=== PATIENT | female | born 1950 | race Caucasian/White ===

== ENCOUNTER 2016-02-26 15:05 | Emergency (ER) | payer OTHER, MEDICARE ==
[2016-02-26] MEDS ORDERED: NORMAL SALINE 10 ML SYRINGE FLUSH IVP PRN (15:21)
[2016-02-26] MEDS ORDERED: ASPIRIN 81 MG (BABY) CHEWABLE TABLET PO ONE (15:21)
--- NOTE | 2016-02-26 15:26 | EKG ---
[address] [place] [address] Measurements Intervals [place] Rate: 57 P: 34 ME: 209 QRS: 24 QRSD: 93 T: 30 QT: 435 QTc: 428 Interpretive Statements SINUS BRADYCARDIA WITH FIRST DEGREE AV BLOCK POSSIBLE ANTERIOR MYOCARDIAL INFARCTION PROBABLY OLD NONSPECIFC ST CHANGES Compared to ECG 05/04/2015 13:03:50 Myocardial infarct finding now present Sinus arrhythmia no longer present Electronically Signed On 02-26-16 20:01:05 [facility] by Alton Sosa [email or web address]
[2016-02-26] MEDS ORDERED: NITROGLYCERIN 0.4 MG SL TAB (BOTTLE OF 3) SL ONE (15:29)
[2016-02-26 15:39] LABS: BASOPHILS # (AUTO) 0.01 10*3/UL; BASOPHILS % (AUTO) 0.2 % (0-1); EOSINOPHILS % (AUTO) 0.3 % (0-8); HEMATOCRIT 39.5 % (37.0-47.0); HEMOGLOBIN 13.3 g/dL (12.0-16.0); IMM GRAN % (AUTO) 0.3 % (0-5); IMM GRAN# (AUTO) 0.02 10*3/UL; LYMPHOCYTES # (AUTO) 2.14 10*3/uL; MEAN CORPUSCULAR HEMOGLOBIN 30.4 PG (27-31); MEAN CORPUSCULAR HGB CONC 33.7 g/dL (33-37); MONOCYTES # (AUTO) 0.41 10*3/UL (0.3-0.8); MONOCYTES % (AUTO) 6.7 % (5-15); NEUTROPHILS # (AUTO) 3.52 10*3/UL; NEUTROPHILS % (AUTO) 57.5 % (50-80); RDW COEFFICIENT OF VARIATION 13.5 % (11.5-14.5); RED BLOOD COUNT 4.38 10^6/uL (4.20-5.40); WHITE BLOOD COUNT 6.12 10^3/uL (4.8-10.8)
[2016-02-26 15:49] LABS: PLATELET MORPHOLOGY COMMENT NORMAL MORPHOLOGY (NORM)
[2016-02-26 15:50] LABS: CALCIUM 9.2 mg/dL (8.7-10.7); MAGNESIUM 1.9 mg/dL (1.6-2.4); TOTAL PROTEIN 7.1 g/dL (6.1-8.0)
--- NOTE | 2016-02-26 15:50 | DI ---
HISTORY: Chest pain with indigestion. COMPARISON: None available. FINDINGS: Borderline cardiomegaly is noted with slight accentuation of the pulmonary vasculature in both lung bases. The lung castellanos are otherwise essentially clear. IMPRESSION: 1. Borderline cardiomegaly is noted with slight accentuation of the pulmonary vasculature in both vero g bases.
[2016-02-26 15:57] VITALS: RESP 16; TEMP 97.8
[2016-02-26 16:04] LABS: PROTHROMBIN TIME 10.2 secs (9.7-11.4)
[2016-02-26 16:05] LABS: CREATINE KINASE MB 1.23 NG/DL (0.00-5.00); TROPONIN I 0.012 ng/mL (< 0.040)
[2016-02-26] MEDS ORDERED: Sodium Chloride 0.9% 1,000 ML PRIMARY IV ONE (16:10)
[2016-02-26] MEDS ORDERED: Belladon/PHENobarbital Elixir 10 ML, Lidocaine Viscous Liquid 2% 15 ML, Mag Hyd/Al Hyd/... PO ONE ×3 (16:15)
[2016-02-26] MEDS ORDERED: Pantoprazole Inj 40 MG in Normal Saline Flush 10 ML IVP ONE (16:15)
[2016-02-26] MEDS ORDERED: LORazepam 2 MG/1 ML VIAL IVP ONE (16:58)
--- NOTE | 2016-02-26 21:25 | PDOC ---
Chest Pain HPI - General Chief Complaint: Chest Pain Stated Complaint: chest pain Date Seen by Provider: 02/26/16 Time Seen by Provider: 15:10 Source: Patient Exam Limitations: POSITIVE: No limitations Treatment Prior to Arrival: REPORTS: Aspirin (81 mg 1 this morning at home), Other (Patient has been taking Tums and an acid medicines at home the past couple of days.) Nurse's Notes Reviewed & Considered: Yes - History of Present Illness Initial Comments: The patient is a 66-year-old female who presents to the emergency department with chest pain. She states that for the past 2 or 3 days she's been having pain in her left lower chest with some radiation up into her neck. She states that she thought this pain was indigestion and she has been taking Tums as well as her regular Zantac and one of her 's Prilosec without any relief. She denies any associated shortness of breath, nausea or vomiting, fevers or chills, cough, palpitations or any other associated complaints. She does have a known history of acid reflux and normally takes Zantac twice a day. She has had one previous heart attack postoperatively after a neck surgery. She has had 2 cardiac catheterizations however after that one in 2008 and one in 2011 which did not show any evidence of blockage or coronary artery disease. She denies any pain or swelling in her extremities. She does have a prior history of stroke and currently takes Plavix. She did take one baby aspirin earlier today. Her pain is been constant since yesterday afternoon. She did take a pain pill at home and got some relief and was able to get some sleep last night. She does report that she has not been sleeping well in general for the past several weeks. She states that she normally takes Xanax however this has not been working recently. - Patient Home Medications Home Medications: Home Medications Aspirin [Adult Low Dose Aspirin] 81 mg PO DAILY 08/23/12 Alprazolam [Xanax] 1 tab PO BEDTIME tab 03/28/15 Levothyroxine Sodium [Synthroid] 1 tab PO DAILY tab 03/28/15 Nebivolol HCl [Bystolic] 5 mg PO DAILY tab 03/28/15 [place]-3 Fatty Acids/Fish Oil [Fish Oil 1,200 Mg Softgel] 1 each PO DAILY cap Psyllium Husk [Metamucil] 0.52 gm PO DAILY cap 09/25/15 Clopidogrel Bisulfate [Plavix] 1 tab PO DAILY #90 tab 11/06/15 Ranitidine HCl 150 mg PO BID #180 tab 11/06/15 Amlodipine Besylate 1 tab PO DAILY #90 tab 11/20/15 Ezetimibe [Zetia] 10 mg PO DAILY #90 tab 11/20/15 Pantoprazole Sodium [Protonix] 40 mg PO BID #30 tablet 02/26/16 - Patient Allergies Allergies/Adverse Reactions: Allergies Allergy/AdvReac Type Severity Reaction Status Date / Time Tetanus Vaccines and Toxoid Allergy Severe HOSPITALIZED Verified 02/26/16 16:02 X 6 WKS Sulfa (Sulfonamide Allergy Intermediate RASH/ Verified 02/26/16 16:02 Antibiotics) SYNCOPAL EPISODE Past Medical History - heen HEENT History: Denies History Cardiovascular History: Previous [facility] Additional Cardiovasular History: PATIENT STATES SHE HAD A VA 8 YEARS AGO (1997 OR ) AND HAD A "NORMAL CATHETERIZATION" FOLLOWING THIS Respiratory History: Denies History Gastrointestinal History: Denies History Genitourinary History: Denies History Endocrine History: Hypothyroidism Musculoskeletal History: Back Pain Prosthesis or Implant: No Additional Musculoskeletal History: NECK SURGERY Neurological History: CVA, Frequent Headaches Blood Disorders: Denies History Psychiatric History: Anixety Disorders Female Reproductive History: Denies History Cancer History: Denies History In Past Year Been Physically Harmed or Verbally Threatened: No History of MDRO: No Tobacco Use: Never Smoker Alcohol Use: Rarely Substance Use Type: None Previous Surgical History: Yes Type / Date of Surgery: NECK SURGERY, HYSTERECTOMY. SHOULDER Anesthesia Reactions: No Significant Family History: No pertinent family hx Past Medical History Reviewed: Reviewed - No Changes ROS - Limitations ROS Limitations: No Limitations Constitution: DENIES: Chills, Fever Cardiovascular: REPORTS: Chest Pain. DENIES: Heart Racing, Heart Palpitations, Blood Pressure Problem, Edema Respiratory: DENIES: Hurts To Breathe, Shortness Of Breath Neurological: REPORTS: Denies Neuro Symptoms Gastrointestinal: DENIES: Nausea, Vomitting Endocrine: REPORTS: Denies Symptoms Musculoskeletal: REPORTS: Denies MS Symptoms Genitourinary: REPORTS: Denies Symptoms Eyes: REPORTS: Denies Symptoms ENT: REPORTS: Denies Symptoms Skin: DENIES: Rash Chest Pain PE - General Appearance General Appearance: REPORTS: Alert, Cooperative, No Acute Distress - HEENT HEENT: POSITIVE: Head Inspection Nml, Eyes Inspection Nml, Ears Inspection Nml, Nose Inspection Nml, PERRL, EOMI - Neck Neck: REPORTS: Normal Inspection. DENIES: JVD Present - Respiratory Respiratory: REPORTS: No Respiratory Distress, Breath Sounds Normal - Cardiovascular Cardiovascular: REPORTS: Regular Rate and Rhythm, Heart Sounds Normal Peripheral Pulses: Dorsalis-pedis (R): 2+, Dorsalis-pedis (L): 2+ - Abdomen Abdomen: Soft: (All Quadrants), Denies Tenderness: (All Quadrants), No Distention: (All Quadrants) - Skin Skin: REPORTS: Intact, No Rash - Extremities Extremity: Normal ROM: (All Extremities), Normal Inspection: (All Extremities) - Neurological / Psychological Neurological: POSITIVE: Oriented X3, Motor Normal, Sensation Normal Chest Pain Progress - Results Reviewed by me Xrays/CTs/US Reviewed by me: Yes Discussed with Radiologist: Yes Radiology Findings: Heart size shows borderline cardiomegaly with questionable increased vascularity per radiologist. Lab Results Reviewed: Yes Lab Results:: Laboratory Results 02/26/16 Range/Units 15:30 WBC 6.12 (4.8-10.8) 10^3/uL RBC 4.38 (4.20-5.40) 10^6/uL Hgb 13.3 (12.0-16.0) g/dL Hct 39.5 (37.0-47.0) % MCV 90.2 (81-99) FL MCH 30.4 (27-31) PG MCHC 33.7 (33-37) g/dL RDW Std Deviation 43.8 (39-50) fL RDW Coeff of Francesca 13.5 (11.5-14.5) % Plt Count 201 (140-350) 10*3/uL MPV 10.0 (7.4-12.2) FL Immature Gran % (Auto) 0.3 (0-5) % Neut % (Auto) 57.5 (50-80) % Lymph % (Auto) 35.0 (10-50) % Butts % (Auto) 6.7 (5-15) % Eos % (Auto) 0.3 (0-8) % Baso % (Auto) 0.2 (0-1) % Immature Gran # (Auto) 0.02 10*3/UL Neut # (Auto) 3.52 10*3/UL Lymph # (Auto) 2.14 10*3/uL Butts # (Auto) 0.41 (0.3-0.8) 10*3/UL Eos # (Auto) 0.02 10*3/UL Baso # (Auto) 0.01 10*3/UL WBC Morphology Comment Normal morphology (NORM) Plt Morphology Comment Normal morphology (NORM) RBC Morph Comment Normal morphology (NORM) PT 10.2 (9.7-11.4) secs INR 1.04 (0.00-5.90) N/A D-Dimer < 0.19 (0.00-0.59) mg/L Sodium 136 (135-145) meq/L Potassium 4.0 (3.8-5.2) meq/L Chloride 101 (98-112) meq/L Carbon Dioxide 25 (23-33) meq/L Anion Gap 10 (5-20) BUN 14 (7-22) mg/dL Creatinine 1.0 (0.50-1.20) mg/dL Estimated GFR 55 (>60 ml/min/1.73m(2)) BUN/Creatinine Ratio 14.00 (6-20) Glucose 101 (78-110) mg/dL Calculated Osmolality 282.0 (267-292) mOsm/kg Calcium 9.2 (8.7-10.7) mg/dL Magnesium 1.9 (1.6-2.4) mg/dL Total Bilirubin 1.0 (0.3-1.2) mg/dL AST 22 (8-39) IU/L ALT 36 (9-52) IU/L Alkaline Phosphatase 70 (38-126) IU/L CK-MB (CK-2) 1.23 (0.00-5.00) NG/DL Troponin I 0.012 (< 0.040) ng/mL Total Protein 7.1 (6.1-8.0) g/dL Albumin 4.3 (3.5-4.8) g/dL Globulin 2.8 (2.50-4.10) g/dL Albumin/Globulin Ratio 1.50 (1.3-2.0) mg/g Amylase 43 (30-110) U/L Lipase 69 (23-300) IU/L EKG Interpreted/Reviewed By Me:: Yes EKG Interpretation:: POSITIVE: Normal Sinus Rhythm, Normal Rate, Normal Intervals, Normal Hawkins, Normal QRS, Normal ST/T - Patient's Progress MDM / ED Course: The patient's initial EKG did not show any significant T-wave or ST segment changes. She did receive 3 additional baby aspirin per chest pain protocol. Her blood work is all essentially unremarkable with a normal d-dimer and normal troponin. Given the duration of her pain lasting several days with a normal troponin the possibility of cardiac etiology for her pain is much less likely. Her d-dimer was also normal and oxygen saturations are normal. She does have a history of acid reflux. She did receive a dose of IV Protonix and a GI cocktail and had significant improvement in pain. In addition the patient reports that she has had significant insomnia and has not slept much for the past several weeks. She normally takes Xanax however here in the emergency department she was given a dose of Ativan 1 mg IV. Results of current workup was discussed with the patient. She will be started on Protonix 40 mg twice a day. She does report that she drinks significant amounts of soda with caffeine. She was advised to limit this as it may be contributing to her acid reflux as well as her insomnia. She is advised to return to the emergency room if she developed increased pain, any worsening or change in symptoms. She'll follow-up with primary care in 3-5 days. - Consult Counseled: POSITIVE: Patient, Family, RE: Lab Results, RE: Radiology Results, RE : DX, RE: Need for F/U Patient Care Time - Estimated PCT Patient Care Time (In Minutes): 50 Vital Signs - Recent Vital Signs Vital Signs: Vital Signs (Last 8 hours) Temp Pulse Resp BP Pulse Ox 02/26/16 17:12 47 L 134/81 93 02/26/16 15:15 70 02/26/16 15:09 97.8 F 70 16 173/104 96 - VS Reviewed Vital Signs Reviewed: Yes Discharge Clinical Impression: Chest pain, GERD (gastroesophageal reflux disease) Condition: Stable Prescriptions / Orders: Pantoprazole Sodium [Protonix] 40 mg PO BID #30 tablet Patient Instructions Given at Discharge: Chest Pain (ED), Gastroesophageal Reflux Disease (ED) Additional Instructions: The pain that you're experiencing in your left lower chest and up into her neck is most likely related to acid reflux. The blood work did not reveal any evidence of heart damage or blood clot. Given that she of had pain for several days this makes a heart attack much less likely. We will recommend that you take Protonix 40 mg twice a day. Recommend avoiding caffeine/soda. Elevate the head of your bed at night. Return to the emergency room if worsening pain, any worsening or change in symptoms. Recommend follow-up with primary care in 3 -5 days. Follow Up With: AMIE DWYER [Primary Care Provider] -
== END 2016-02-26 17:42 | disposition home or self-care (01) ==
LOC: ER 15:05
DX: K21.9 Gastro-esophageal reflux disease without esophagitis (principal); R07.89 Other chest pain; Z86.73 Personal history of transient ischemic attack (TIA), and cerebral infarction without residual deficits; I25.2 Old myocardial infarction
CPT/HCPCS: 71010; 80053; 82150; 82553; 83690; 83735; 84484; 85025; 85379; 85610; 93005; 93010; 96374; 96375; 99284; J2060; J3490; J7030

== ENCOUNTER → 2016-02-28 | Outpatient (CLI) | payer OTHER, MEDICARE | LOC: MMPC 09:00 | PROVIDERS: ATTEND Nurse Practitioner Family | DX: K21.9 Gastro-esophageal reflux disease without esophagitis (principal) | CPT/HCPCS: 99214; G0463 ==

== ENCOUNTER → 2016-03-12 | Outpatient (CLI) | payer OTHER, MEDICARE | LOC: MMPC 11:11 | PROVIDERS: ATTEND Surgery | DX: K20.9 Esophagitis, unspecified (principal); R10.13 Epigastric pain | CPT/HCPCS: 99201 ==

== ENCOUNTER → 2016-03-14 | Outpatient (CLI) | payer OTHER, MEDICARE ==
--- NOTE | 2016-03-14 12:57 | DI ---
DOUBLE CONTRAST UPPER GI SERIES WITH KUB, 03/14/2016 10:23 AM: Clinical History: Esophagitis. Epigastric pain. A "time out" session was performed to verify the patient's name and date of prior to initiating this procedure. 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 Deglutition is normal and the esophagus strips well. The e sophagus is normal. There is no esophageal ulcer, stricture, or evidence of esophagitis. There is no hiatal hernia. There is reflux of barium to the cervical esophagus with the patient in the supine pos ition. There is coarsening of the areae gastricae pattern with multiple small aphthous ulcerations co nsistent with mild to moderate nonspecific superficial gastritis. No classic peptic ulcers are identi fied. The pyloric channel, duodenal bulb, C-loop, and proximal small bowel run off and the small maximiliano l extending to the ileum are normal. There are no obvious coronary artery calcifications noted. Readin. There is gross reflux of barium to the cervical esophagus but no esophagitis, ulceration, or stri cture is identified. 2. There is mild to moderate nonspecific superficial gastritis involving primarily the fundus and kristine dy of the stomach. 3. The remainder of the examination is normal.
== END ==
LOC: RAD 10:17
PROVIDERS: ATTEND Surgery
DX: K20.9 Esophagitis, unspecified (principal); R10.13 Epigastric pain; K29.70 Gastritis, unspecified, without bleeding
CPT/HCPCS: 74247

== ENCOUNTER → 2016-04-29 | Outpatient (CLI) | payer OTHER, MEDICARE | LOC: MMPC 09:00 | PROVIDERS: ATTEND Nurse Practitioner Family | DX: G57.93 Unspecified mononeuropathy of bilateral lower limbs (principal); G56.92 Unspecified mononeuropathy of left upper limb; R29.898 Other symptoms and signs involving the musculoskeletal system | CPT/HCPCS: 99214 ==

== ENCOUNTER → 2016-04-30 | Outpatient (CLI) | payer OTHER, MEDICARE ==
[2016-04-30 08:35] LABS: HEMOGLOBIN A1C 5.19 % (4.2-6.0); MEAN BLOOD GLUCOSE (CALC) 86.827 mg/dL
[2016-04-30 08:38] LABS: BILIRUBIN,TOTAL 0.8 mg/dL (0.3-1.2); BUN/CREATININE RATIO 20.9 (6-20); CALCIUM 9.4 mg/dL (8.7-10.7); CREATININE 1.1 mg/dL (0.50-1.20); POTASSIUM 4.1 meq/L (3.8-5.2); TOTAL PROTEIN 7.1 g/dL (6.1-8.0)
[2016-05-01 15:19] LABS: A/G RATIO 1.23 (()); ALB PEP SER 3.7 g/dL (3.4-4.7); ALP1 GLOB 0.2 g/dL (0.1-0.3); ALP2 GLOB 0.9 g/dL (0.6-1.0); BETA GLOBS 1.1 g/dL (0.7-1.2); GAMMA GLOBS 0.8 g/dL (0.6-1.6); TOT PRT SERUM 6.7 g/dL (6.3 - 7.9)
[2016-05-02 07:23] LABS: IMPRESSION SEE COMMENTS (())
== END ==
LOC: LAB 08:10
PROVIDERS: ATTEND Nurse Practitioner Family
DX: E03.9 Hypothyroidism, unspecified (principal); I10 Essential (primary) hypertension; G56.92 Unspecified mononeuropathy of left upper limb; G57.93 Unspecified mononeuropathy of bilateral lower limbs; R20.0 Anesthesia of skin; Z79.899 Other long term (current) drug therapy
CPT/HCPCS: 36415; 80053; 82607; 82746; 83036; 84155; 84165; 84439; 84443; 85652

== ENCOUNTER → 2016-06-26 | Outpatient (CLI) | payer OTHER, MEDICARE ==
--- NOTE | 2016-06-26 16:01 | DI ---
XR L-SPINE MIN 4 VW,06/26/2016 1:43 PM: Clinical History: Degenerative changes of the lumbosacral region. Previous Exam: None at this facility. Findings: AP, lateral, flexion and extension views of the lumbar spine are obtained, and demonstrate anatomic a lignment without fractures. Vertebral body height is preserved. Intervertebral disc height is also pr eserved. Posterior T2-weighting facets are unremarkable. There is no evidence of instability on flexion or extension. No pathologic calcifications are seen. A nonobstructive bowel gas pattern is noted. Impression: Normal lumbar spine for age.
--- NOTE | 2016-06-26 16:22 | DI ---
MRI LUMBAR SPINE W/O CN,06/26/2016 1:11 PM: Clinical History: Low back pain and left lower extremity weakness Previous Exam: None at this facility. Findings: Multiplanar MR images are obtained through the lumbar spine without contrast. Bony alignment is anatomic. No fractures are seen. Marrow signal is preserved. Vertebral body height is preserved. The distal spinal cord demonstrates a prominent central canal. There is no mass identified within the spinal cord and signal is otherwise normal. The major vascular flow voids are unremarkable. The para spinal soft tissues are unremarkable. There are some bilateral simple renal cysts noted. There is mild facet hypertrophy. Individual intervertebral disc spaces: L1/2: No significant stenosis. L2/3: No significant stenosis. L3/4: There is mild disc desiccation and a broad-based disc bulge without significant stenosis. L4/5: No significant stenosis. L5/S1: There is disc desiccation and a broad-based disc bulge with mild facet and ligamentum flavum h ypertrophy contributing to mild left and no significant right neural foraminal narrowing. Impression: 1. No significant central canal nor neural foraminal narrowing. 2. Prominent central canal in the distal spinal cord without evidence of mass or other abnormality. G iven the symptomatology, consider imaging of the entire spinal cord both before and after gadolinium enhancement.
== END ==
LOC: MRI 13:06
PROVIDERS: ATTEND Nurse Practitioner Family
DX: M54.17 Radiculopathy, lumbosacral region (principal); M62.81 Muscle weakness (generalized); M54.5 Low back pain; M47.816 Spondylosis without myelopathy or radiculopathy, lumbar region; M47.27 Other spondylosis with radiculopathy, lumbosacral region
CPT/HCPCS: 72110; 72148

== ENCOUNTER → 2016-10-07 | Outpatient (CLI) | payer OTHER, MEDICARE ==
[2016-10-07 09:15] LABS: CHOL/HDL RATIO 3.54 RATIO (0-4.0); LDL CHOLESTEROL,CALCULATED 139.8 mg/dL
== END ==
LOC: LAB 08:21
PROVIDERS: ATTEND Nurse Practitioner Family
DX: E78.5 Hyperlipidemia, unspecified (principal)
CPT/HCPCS: 36415; 82247; 82465; 82550; 82977; 83718; 84075; 84450; 84460; 84478